=== PATIENT | male | born 1980 | race Two or more races ===

== ENCOUNTER 2025-01-14 13:06 | Emergency (ER) | payer BC, SELFPAY ==
[2025-01-14 13:08] VITALS: BMI 31.4
--- NOTE | 2025-01-14 13:12 | EKG_ITS ---
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
[2025-01-14 13:22] VITALS: BP 131/81; PULSE 70; RESP 20; TEMP 36.6; O2SAT 96
--- NOTE | 2025-01-14 13:25 | XR_ITS ---
Examination: PA chest single view Technique: Upright PA chest single view Date and time: January 14, 2025 1336 hrs., Comparison July 05, 2018 Indications: Intermittent chest pain beginning 3 days ago. Findings: Normal heart size. Lungs are clear. The osseous structures are intact. Impression: No active disease.
--- NOTE | 2025-01-14 13:25 | XR_ITS ---
Examination: Abdomen sonogram, Limited Date and time of exam: January 14, 2025, 1346 hrs. Indications: Right upper abdominal pain with heartburn today Technique: Real-time whiting scale transabdominal sonographic images of the upper abdomen obtained. Findings: Small gallstones. Normal gallbladder wall 0.2 cm Common bile duct 0.2 cm. Pancreatic head 2.3 cm. Liver 15.3 cm fatty infiltration Normal hepatopedal portal venous oh Patent IVC Impression: Cholelithiasis, negative for cholecystitis
[2025-01-14 13:53] LABS: Basophils # (Auto) 0.1 Thou/mm3 (0.0-0.2); Basophils % (Auto) 1 % (0-2.5); Eosinophils # (Auto) 0.2 Thou/mm3 (0.0-0.5); Eosinophils % (Auto) 2 % (0-10); Hematocrit 44.9 % (41.0-53.0); Hemoglobin 15.7 g/dL (13.5-16.0); Immature Granulocytes Auto 0.02 Thou/mm3 (0.00-0.00); Lymphocytes # (Auto) 2.3 Thou/mm3 (1.0-4.8); Lymphocytes % (Auto) 33 % (10-50); Mean Corpuscular HGB Conc 35.0 g/dl (31.0-37.0); Mean Corpuscular Hemoglobin 29.7 pg (25.0-35.0); Mean Corpuscular Volume 85 fL (80-100); Monocytes # (Auto) 0.4 Thou/mm3 (0.0-0.8); Monocytes % (Auto) 6 % (0-12); Neutrophils # (Auto) 4.0 Thou/mm3 (1.8-7.7); Neutrophils % (Auto) 57 % (37-80); Nucleated Red Blood Cell # 0.00 Thou/mm3 (0.00-0.00); Nucleated Red Blood Cell % 0 /100 WBC (0); Platelet Count 222 Thou/mm3 (140-440); RDW Standard Deviation 36.9 fL (35.1-43.9); Red Blood Count 5.28 Miln/mm3 (4.50-5.90); White Blood Count 7.0 Thou/mm3 (3.8-10.6)
[2025-01-14 14:09] LABS: B-Type Natriuretic Peptide 20 pg/mL (0-100)
[2025-01-14 14:10] LABS: Alanine Aminotransferase 16 U/L (10-49); Albumin, Serum 4.9 gm/dL (3.5-5.0); Albumin/Globulin Ratio 2.1 (1.2-2.2); Alkaline Phosphatase 59 U/L (46-116); Anion Gap 11 (7-16); Aspartate Amino Transferase 20 U/L (0-34); BUN/Creatinine Ratio 16 Ratio (12-20); Bilirubin,Total 1.6 mg/dL (0.3-1.2); Blood Urea Nitrogen 16 mg/dL (9-23); Calcium 10.4 mg/dL (8.3-10.6); Calcium (Corrected) 10.4 mg/dL (8.5-10.1); Carbon Dioxide 24.2 mMol/L (20.0-31.0); Chloride 109 mMol/L (98-107); Creatinine (Component) 1.0 mg/dL (0.6-1.3); Estimated Creatinine Clearance 99.2 mL/min (>60); Globulin 2.3 gm/dL (2.3-3.5); Glucose 92 mg/dL (74-106); Lipase 26 U/L (12-53); Osmolality,Calculated 288 (275-295); Potassium 3.9 mMol/L (3.4-5.1); Sodium 144 mMol/L (136-145); Total Protein 7.2 gm/dL (5.7-8.2); Troponin I < 0.002 ng/mL (0.0-0.045); eGFR > 60 See Note
--- NOTE | 2025-01-14 14:17 | PD.EDCHEST ---
ED Chest Pain RME/HPI General Chief Complaint: Chest Pain Stated Complaint: CHEST PAIN ON/OFF FOR 3 DAYS,CONSTANT SINCE 1100 Time Seen by Provider: 01/14/25 13:12 Arrival date/time: 01/14/25 13:06 This is a case of 44-year-old male who have history of GERD came in in the emergency room due to chest pain burning and pressure in character radiating to the epigastric area patient denies any shortness of breath or palpitation for 3 days persistence of the symptoms this patient decided to sought consult here in the emergency room Limitations: no limitations Related Data Home Medications ?Medication ?Instructions ?Recorded ?Confirmed albuterol sulfate 90 mcg/actuation 2 puff inhalation ACHS PRN Wheezing 02/10/19 02/10/19 aerosol inhaler (Ventolin HFA) omeprazole 40 mg capsule,delayed 40 mg PO QDAY 02/10/19 02/10/19 release Previous Rx's ?Medication ?Instructions ?Recorded ondansetron HCl 4 mg tablet 4 mg PO QID PRN nausea and 02/10/19 (Zofran) vomiting #10 tabs famotidine 20 mg tablet 20 mg PO BID #60 tabs 01/14/25 hydrocodone 5 mg-acetaminophen 325 1 tab PO Q6H PRN pain #15 tabs 01/14/25 mg tablet omeprazole 40 mg capsule,delayed 40 mg PO QDAY #30 caps 01/14/25 release ondansetron 4 mg disintegrating 4 mg PO Q8H PRN nausea and 01/14/25 tablet vomiting #20 tabs Allergies Allergy/AdvReac Type Severity Reaction Status Date / Time onion Allergy Severe Nausea/Vomi Verified 01/14/25 13:10 tiing Review of Systems Review of Systems Systems Reviewed: All systems reviewed, normal except as documented Constitutional Constitutional: Reports system reviewed and no additional complaints, except as documented and Reports as per HPI Cardiovascular Cardiovascular: Reports system reviewed and no additional complaints, except as documented, Reports as per HPI, Reports chest pain, Denies dyspnea, Denies dyspnea on exertion and Denies rapid heart rate Respiratory Respiratory: Reports system reviewed and no additional complaints, except as documented, Denies cough, Denies dyspnea and Denies dyspnea on exertion Gastrointestinal Gastrointestinal: Reports system reviewed and no additional complaints, except as documented, Reports as per HPI, Reports abdominal pain, Denies nausea and Denies vomiting Genitourinary Genitourinary: Reports system reviewed and no additional complaints, except as documented and Reports as per HPI Neurologic Neurologic: Reports system reviewed and no additional complaints, except as documented and Reports as per HPI Past Medical History Past Medical History CARDIAC: Positive Cardiac Disorders; Negative Congestive Heart Failure RESPIRATORY: Negative Chronic Obstructive Pulmonary Disease (COPD) or Asthma GASTROINTESTINAL: Positive Gastrointestinal Disorders and Gastroesophageal Reflux Disease GENITOURINARY: Negative Renal Disease ENDOCRINE: Negative Diabetes Mellitus Type 1 or Diabetes Mellitus Type 2 HEMATOLOGIC: Negative Sickle Cell Disease Social History SMOKING STATUS: Never smoker SUBSTANCE USE: unknown ED Exam General Limitations: Present no limitations General appearance: Present alert, in no apparent distress and other (Patient is awake alert oriented not in distress nontoxic looking well-hydrated well-nourished) Head Head exam: Present atraumatic, normocephalic and normal inspection Eye Eye exam: Present normal appearance, PERRL and EOMI ENT ENT exam: Present normal exam, normal oropharynx and mucous membranes moist Neck Neck exam: Present normal inspection, full ROM and trachea midline; Absent tenderness, meningismus, lymphadenopathy or thyromegaly Chest Chest inspection: Present normal inspection and symmetric chest wall rise; Absent tenderness Respiratory Respiratory exam: Present normal lung sounds bilaterally; Absent respiratory distress, wheezes, stridor, accessory muscle use or prolonged expiratory phase Cardiovascular Cardiovascular exam: Present regular rate, normal rhythm and normal heart sounds; Absent bradycardia, tachycardia, irregular rhythm, systolic murmur or diastolic murmur Abdominal Exam Abdominal exam: Present soft, tenderness (Mild tenderness epigastric area no CVA tenderness) and normal bowel sounds; Absent distention, guarding, rebound, rigidity, diminished bowel sounds, hyperactive bowel sounds, hypoactive bowel sounds, organomegaly, psoas sign, obturator sign, Jauregui's sign, tenderness at McBurney's Point, ascites or hernia Extremities Exam Extremities exam: Present normal inspection and full ROM Back Exam Back exam: Present normal inspection and full ROM Neurological Exam Neurological exam: Present alert, oriented X3, CN II-XII intact, normal gait and reflexes normal; Absent motor sensory deficit Psychiatric Psychiatric exam: Present normal affect and normal mood Skin Skin exam: Present warm, dry, intact and normal color Course Quality Measures none Orders Category Date Time Status EKG (ED ONLY) *Do not use* NOW Care 01/14/25 13:12 Completed EKG (ED Only) Stat Exams 01/14/25 13:12 Draft US gall bladder Stat Exams 01/14/25 13:25 Completed XR chest 1V portable Stat Exams 01/14/25 13:25 Completed BNP [B-Type Natriuretic Peptide] Stat Lab 01/14/25 13:42 Completed CBC Stat Lab 01/14/25 13:42 Completed Comprehensive Metabolic Panel Stat Lab 01/14/25 13:42 Completed Lipase Stat Lab 01/14/25 13:42 Completed Troponin I Stat Lab 01/14/25 13:42 Completed Urinalysis Stat Lab 01/14/25 13:25 Ordered Famotidine [Pepcid] Med 01/14/25 15:16 Discontinued 40 mg PO X1 ONE HYDROcodone*/APAP 5/325 [Roderfield 5/325] Med 01/14/25 15:16 Discontinued 1 tab PO X1 ONE Lidocaine 2% Viscous [Xylocaine 2% Viscous] Med 01/14/25 15:16 Discontinued 15 ml PO X1 ONE Ondansetron Odt [Zofran Odt] Med 01/14/25 15:16 Discontinued 4 mg PO X1 ONE mg Hyd/Al Hyd/Rafael Susp [Maalox Susp] Med 01/14/25 15:16 Discontinued 30 ml PO X1 ONE Vital Signs Vital signs: Vital Signs Temperature 97.9 F 01/14/25 13:22 Pulse Rate 70 01/14/25 13:22 Respiratory Rate 20 01/14/25 13:22 Blood Pressure 131/81 H 01/14/25 13:22 Pulse Oximetry (%) 96 01/14/25 13:22 Oxygen Delivery Method Room Air 01/14/25 13:22 Oxygen saturation is 96% in room air Chest Pain MDM Narrative MDM Narrative:: This is a case of 44-year-old male who have history of GERD came in in the emergency room due to chest pain burning and pressure in character radiating to the epigastric area patient denies any shortness of breath or palpitation for 3 days persistence of the symptoms this patient decided to sought consult here in the emergency room physical examination patient is awake alert oriented not in distress nontoxic looking vital signs stable afebrile not tachycardic not tachypneic not hypoxic lungs sound is clear no crackles no rales no retraction no stridor heart normal rate regular rhythm no murmur there is a mild tenderness on the epigastric area but no guarding no rebound no rigidity negative psoas negative straight or negative Rovsing's negative Jauregui sign negative CVA tenderness blood test showed no leukocytosis no anemia kidney liver function is normal no electrolyte imbalance lipase is normal urinalysis is normal patient chest x-ray is normal troponin and BNP is negative patient EKG was sinus rhythm patient ultrasound showed gallstone but no cholecystitis patient was given a Zofran for vomiting patient was given Pepcid lidocaine viscous Maalox for GI cocktail and Roderfield for pain after 1 hour patient was reassessed patient condition markedly improved and resolved abdominal exam is benign and nonsurgical patient was advised to follow-up with PCP in 2 days for reevaluation and to be referred to boiler tender and general surgeon for cholelithiasis and to see a boiler tender for possible EGD for gastritis he needs to also to see a lead trainer for chest pain for possible echocardiogram stress test and Holter monitor return precaution to the ER was advised keep hydrated and modify diet was advsied Patient data External records reviewed:: [facility] previous records Clinical information provided by:: patient Social determinants that could affect healthcare access:: none Patient has the following chronic illnesses:: None How is presenting disease/condition affected by chronic disease/condition?: no chronic disease Evaluation data The following diagnostics were reviewed and interpreted by me:: lab results, radiology exam(s) and EKG tracing(s) Lab and/or radiology exams considered but not ordered:: Reviewed Interpretation Summary: Neurologist reviewed Medications / Prescriptions Medications or Prescriptions considered but not ordered:: Given Medication administrations:: Medication Administration History Discontinued Medications Hydrocodone Bitart/Acetaminophen (Hydrocodone/Apap 5/325 Tablet) 1 tab PO X1 ONE Stop: 01/14/25 15:17 Al Hydrox/Mg Hydrox/Simethicone (Mg Hyd/Al Hyd/Rafael (Maalox Reg) Susp 30 Ml Udc) 30 ml PO X1 ONE Stop: 01/14/25 15:17 Famotidine (Famotidine 20 Mg Tablet) 40 mg PO X1 ONE Stop: 01/14/25 15:17 Lidocaine HCl (Lidocaine Viscous 2% 15 Ml Udc) 15 ml PO X1 ONE Stop: 01/14/25 15:17 Ondansetron HCl (Ondansetron Odt 4 Mg Tabrap) 4 mg PO X1 ONE; Protocol Stop: 01/14/25 15:17 Given Consultations Consultation(s) initiated? (list below): No Diagnosis Chest Pain Differential Diagnosis: atypical chest pain, costochondritis, chest pain and other (Cholelithiasis gastritis) Most likely diagnosis given after review of the tests above:: Noncardiac chest pain cholelithiasis gastritis Admission Indicated Admission indicated?: not indicated Explain why admission is indicated or not indicated:: Not indicated Admission Request Was there a request for admission?: No Admission Attestation Admission request attestation: Not indicated Disposition Plan Disposition Plan: Discharge Discharge Attestation Discharge Attestation: The patient and all family members were given an opportunity to ask questions and understood the discharge instructions. Discharge instructions specifically effects, indications for sooner follow up or return to the emergency department, and the expected course of current diagnosis. Patient condition: Stable Discharge Plan Plan Patient Disposition: HOME (Self Care) Patient condition on transfer: Stable Prescriptions/Referrals Prescriptions/Med Rec: New hydrocodone-acetaminophen 5-325 mg tablet 1 tab PO Q6H MDD max 4 tabs per day PRN (Reason: pain) Qty: 15 0RF ondansetron 4 mg tablet,disintegrating 4 mg PO Q8H PRN (Reason: nausea and vomiting) Qty: 20 0RF famotidine 20 mg tablet 20 mg PO BID Qty: 60 0RF omeprazole 40 mg capsule,delayed release(DR/EC) 40 mg PO QDAY Qty: 30 0RF No Action omeprazole 40 mg Capsule,Delayed Release(Dr/Ec) 40 mg PO QDAY albuterol sulfate [Ventolin HFA] 90 mcg/actuation Hfa Aerosol Inhaler 2 puff inhalation ACHS PRN (Reason: Wheezing) ondansetron HCl [Zofran] 4 mg tablet 4 mg PO QID PRN (Reason: nausea and vomiting) Qty: 10 0RF Referrals: Tenzin Wan MD [Referring Provider] - 01/15/25 (For further evaluation of chest pain for possible echocardiogram stress test and Holter monitor) Lashaun Mack MD [Physician] - 01/15/25 (For further evaluation and treatment of gastritis and cholelithiasis) No Primary/Family,Physician [Primary Care Provider] - In 1 week Problem List Clinical Impression: Chest pain of unknown etiology, Gastritis, Cholelithiasis Patient/Caregiver Discharge Instructions Education Materials: What Are Gallstones, ED Chest Pain, Uncertain Cause, ED Gastritis (Adult) Additional Instructions: Follow-up with your primary care physician in 2 days for reevaluation and to be referred to lead trainer for further evaluation and treatment of chest pain for possible echocardiogram stress test and Holter monitor it is also very important to see a boiler tender and general surgeon for your cholelithiasis and gastritis recurrence persistent worsening symptoms or any emergent concern call 911 or go to the nearest emergency room take your medication as directed avoid skipping of meals avoid fatty fried high cholesterol food avoid spicy food avoid alcohol soda or coffee keep hydrated Print Language: Taiwanese Stand Alone Forms: Norma Award Info., Patient Portal Info Letter PA/BRILLIANDEER LOOPER Supervising Physician PA/BRILLIANDEER LOOPER Supervising Physician: Dr ernst
[2025-01-14] MEDS: LIDOCAINE VISCOUS 2% 15 ML UDC PO (15:30)
[2025-01-14] MEDS: MG HYD/AL HYD/SIME (Maalox Reg) SUSP 30 ML UDC PO (15:30)
[2025-01-14] MEDS: HYDROcodone/APAP 5/325 TABLET 1 TAB PO (15:30)
[2025-01-14] MEDS: FAMOTIDINE 20 MG TABLET 40 MG PO (15:30)
[2025-01-14] MEDS: ONDANSETRON ODT 4 MG TABRAP PO (15:32)
[2025-01-14 15:33] LABS: Collection Type, Urine Clean Catch; Squamous Epithelial Cell,Urine 0 /hpf (0-5)
[2025-01-14 16:05] LABS: Bilirubin,Urine Negative (Negative); Blood,Urine Negative (Negative); Clarity,Urine Clear (Clear/Hazy); Color,Urine Yellow (Lt Yel-Yel); Glucose, Urine Negative (Negative); Ketones,Urine Negative (Negative); Leukocyte Esterase,Urine Negative (Negative); Nitrite,Urine Negative (Negative); PH,Urine 6.0 (5.0-7.0); Protein,Urine Trace (Neg - Trace); RBC,Urine 4 /hpf (0-3); Specific Gravity,Urine 1.032 (1.001-1.035); Transitional Epi Cells,Urine 1 /hpf (0-5); Urobilinogen,Urine Negative mg/dL (0.0-1.0); WBC,Urine < 1 /hpf (0-5)
== END 2025-01-14 15:45 | disposition home or self-care (01) ==
PROVIDERS: Nurse Practitioner Family; Emergency Provider Emergency Medicine
DX: K80.20 Calculus of gallbladder without cholecystitis without obstruction (principal); K29.70 Gastritis, unspecified, without bleeding; I45.89 Other specified conduction disorders; R07.9 Chest pain, unspecified
CPT/HCPCS: 36415; 71045; 76705; 80053; 81001; 83690; 83880; 84484; 85025; 93005; 99283; J3490; Q0162; A9270